=== PATIENT | female | born 1970 | race Two or more races ===

== ENCOUNTER 2021-01-10 08:56 | Day surgery (SDC) | payer OTHER ==
[2021-01-10] MEDS ORDERED: PEPCID AC20 MG PO (11:35)
== END 2021-01-10 12:50 | disposition home or self-care (01) ==
LOC: AMB-ENDOS 08:56
PROVIDERS: ATTEND Surgery
DX: K30 Functional dyspepsia (principal); K44.0 Diaphragmatic hernia with obstruction, without gangrene; Z20.822 Contact with and (suspected) exposure to COVID-19